=== PATIENT | male | born 1980 | race Caucasian/White ===

== ENCOUNTER 2018-10-07 11:38 | Emergency (ER) | payer BC ==
[2018-10-07] MEDS ORDERED: NORMAL SALINE 1000 ML 1,000 ML IV ONE (11:47)
[2018-10-07] MEDS ORDERED: OCTREOTIDE ACETATE INJ/PF 100 MCG/1 ML SDV IV ONE ×2 (11:51→12:00)
[2018-10-07] MEDS ORDERED: FAMOTIDINE INJ/PF 20 MG/2 ML SDV IV ONE (11:52)
[2018-10-07] MEDS ORDERED: PANTOPRAZOLE SODIUM 40 MG VIAL IV ONE (11:54)
[2018-10-07] MEDS ORDERED: PHARMACY COMMUNICATION ORDER MC NR (12:00)
[2018-10-07 12:07] LABS: ABSOLUTE EOSINOPHILS # (AUTO) 0.1 10^3/uL (0.0-0.6); ABSOLUTE LYMPHOCYTES (AUTO) 3.5 10^3/uL (0.5-4.7); ABSOLUTE NEUT (AUTO) 10.5 10^3/uL (1.7-8.2); BASOPHILS % (AUTO) 0.3 % (0-2); EOSINOPHILS % (AUTO) 0.8 % (0-6); HEMATOCRIT 37.2 % (37.9-51.0); HEMOGLOBIN 12.4 g/dL (13.5-17.0); LYMPHOCYTES % (AUTO) 23.2 % (13-45); MEAN CORPUSCULAR HEMOGLOBIN 29.4 pg (27.0-33.4); MEAN CORPUSCULAR HGB CONC 33.5 g/dL (32.0-36.0); MEAN CORPUSCULAR VOLUME 88 fl (80-97); MONOCYTES % (AUTO) 6.4 % (3-13); PLATELET COUNT 330 10^3/uL (150-450); RED BLOOD COUNT 4.23 10^6/uL (4.35-5.55); RED CELL DISTRIBUTION WIDTH 13.4 % (11.5-14.0); SEGMENTED NEUTROPHILS % (AUTO) 69.3 % (42-78); TOTAL CELLS COUNTED % (AUTO) 100 %; WHITE BLOOD COUNT 15.2 10^3/uL (4.0-10.5)
[2018-10-07 12:14] LABS: PROTHROMBIN TIME 14.8 SEC (11.4-15.4)
[2018-10-07 12:15] LABS: PARTIAL THROMBOPLASTIN TIME 24.2 SEC (23.5-35.8)
--- NOTE | 2018-10-07 12:17 | ER Document Report ---
ED General - General Stated Complaint: POSSIBLE GI BLEED Time Seen by Provider: 10/07/18 11:45 - HPI Notes: Patient is a 38-year-old male that presents to the emergency department for chief complaint of black stools. Patient reports onset of black tarry stools 1 hour prior to arrival in the emergency room. He states he has a history of gastric ulcers and has had 4 episodes of bleeding in the past. Patient has required blood transfusions previously. He reported feeling nauseated upon arrival to the emergency room which is when he also began vomiting. He denies history of esophageal varices or alcohol consumption. He states all of his family members also have peptic ulcers. He denies ever having hematemesis previously. Patient also feels hot and lightheaded. He denies syncope. Past Medical History: duadenal ulcers Past Surgical History: Negative Social History: Denies alcohol and drug use Family History: Reviewed and noncontributory for presenting illness Allergies: Reviewed, see documented allergy list. REVIEW OF SYSTEMS: CONSTITUTIONAL : No fever No chills diaphoresis No recent illness EENT: No vision changes No congestion No sore throat CARDIOVASCULAR: No chest pain No palpitations RESPIRATORY: No shortness of breath No cough No difficulty breathing GASTROINTESTINAL: abdominal pain nausea vomiting Black stools No diarrhea GENITOURINARY: No dysuria No hematuria No difficulty urinating MUSCULOSKELETAL: No back pain No leg pain No arm pain SKIN: No rashes No lesions LYMPHATIC: No swollen, enlarged glands. NEUROLOGICAL: No lightheadedness No headache No weakness No paresthesias PSYCHIATRIC: No anxiety No depression PHYSICAL EXAMINATION: Vital signs reviewed, nursing noted reviewed. GENERAL: Pale, diaphoretic, moderate distress HEAD: Atraumatic, normocephalic. EYES: Eyes appear normal, extraocular movements intact, sclera anicteric, conjunctiva are normal. ENT: nares patent, oropharynx clear without exudates. Moist mucous membranes. NECK: Normal range of motion, supple without lymphadenopathy LUNGS: Breath sounds clear to auscultation bilaterally and equal. No wheezes rales or rhonchi. HEART: Tachycardic rate and regular rhythm without murmurs ABDOMEN: Soft, epigastric tenderness, normoactive bowel sounds. No rebound, guarding, or rigidity. No masses appreciated. EXTREMITIES: Nontender, good range of motion, no pitting or edema. NEUROLOGICAL: No focal neurological deficits. Moves all extremities spontaneously Motor and sensory grossly intact on exam. PSYCH: Normal mood, normal affect. SKIN: Warm, diaphoretic, normal turgor, pale Past Medical History - Social History Smoking Status: Never Smoker Family History: Other - Mother and sibling with ulcers Physical Exam - Vital signs Vitals: Pulse Resp Pulse Ox 60 13 100 10/07/18 11:58 10/07/18 11:58 10/07/18 11:58 Course - Re-evaluation Re-evalutation: 10/07/18 12:05 Vitals reviewed. Nursing notes reviewed. Patient's heart rate was 122 and he was clammy, diaphoretic and lightheaded at presentation. Patient had multiple episodes of black stools and emesis while in the emergency room. Patient was started on IV fluids as well as blood transfusion, Protonix and octreotide. Patient's care was discussed with Dr. Dudley who evaluated the patient at bedside in the emergency room. Plan to do upper endoscopy after initial stabilization. If there is an area of bleeding that he can visualize and stop plan to admit to this facility. If patient is requiring further intervention he will need transfer to a facility with GI. 10/07/18 14:27 Patient's vital signs have improved after 2 units of packed red blood cells and 1 L of IV fluids. His tachycardia resolved and his systolic blood pressure is now 110, clinically patient appears better. He did receive upper endoscopy by Dr. Dudley at bedside in the emergency room which showed a brisk duodenal hemorrhage from ulcer. Epinephrine was injected which slowed the bleeding. Dr. Dudley still requests transfer to outside facility for further GI evaluation and possible IR intervention if bleeding recurs or worsens. Patient is in agreement with this plan of care. Patient's care was discussed with Dr. Orellana, ICU at [facility] who requested discuss her care with the hospitalist since patient's vital signs had stabilized. I discussed patient's care with Dr. Rubio, hospitalist, and Dr. Yoder, gastroenterology, who both recommend ICU admission. Patient's care was then discussed with Dr. Leon who does accept to the ICU. Laboratory 10/07/18 10/07/18 10/07/18 11:55 11:55 11:55 WBC 15.2 H RBC 4.23 L Hgb 12.4 L Hct 37.2 L MCV 88 MCH 29.4 MCHC 33.5 RDW 13.4 Plt Count 330 Seg Neutrophils % 69.3 Lymphocytes % 23.2 Monocytes % 6.4 Eosinophils % 0.8 Basophils % 0.3 Absolute Neutrophils 10.5 H Absolute Lymphocytes 3.5 Absolute Monocytes 1.0 Absolute Eosinophils 0.1 Absolute Basophils 0.0 PT 14.8 INR 1.10 APTT 24.2 Sodium 140.7 Potassium 4.4 Chloride 106 Carbon Dioxide 24 Anion Gap 11 BUN 33 H Creatinine 0.95 Est GFR ( Amer) > 60 Est GFR (Non-Af Amer) > 60 Glucose 194 H Calcium 8.9 Total Bilirubin 0.6 Direct Bilirubin 0.2 Neonat Total Bilirubin Not Reportable Neonat Direct Bilirubin Not Reportable Neonat Indirect Bili Not Reportable AST 15 L ALT 25 Alkaline Phosphatase 72 Total Protein 5.9 L Albumin 3.4 L Blood Type Antibody Screen Crossmatch 10/07/18 11:55 WBC RBC Hgb Hct MCV MCH MCHC RDW Plt Count Seg Neutrophils % Lymphocytes % Monocytes % Eosinophils % Basophils % Absolute Neutrophils Absolute Lymphocytes Absolute Monocytes Absolute Eosinophils Absolute Basophils PT INR APTT Sodium Potassium Chloride Carbon Dioxide Anion Gap BUN Creatinine Est GFR ( Amer) Est GFR (Non-Af Amer) Glucose Calcium Total Bilirubin Direct Bilirubin Neonat Total Bilirubin Neonat Direct Bilirubin Neonat Indirect Bili AST ALT Alkaline Phosphatase Total Protein Albumin Blood Type O POSITIVE Antibody Screen NEGATIVE Crossmatch See Detail KUB X-Ray 10/07/18 11:51 IMPRESSION: The tip of the NG tube is at the GE junction. 10/07/18 14:34 - Vital Signs Vital signs: Temp Pulse Resp BP Pulse Ox 98.3 F 96 17 132/90 H 100 10/07/18 12:46 10/07/18 13:31 10/07/18 13:31 10/07/18 13:31 10/07/18 13:31 - Laboratory Result Diagrams: 10/07/18 11:55 10/07/18 11:55 Laboratory results interpreted by me: 10/07/18 10/07/18 10/07/18 11:55 11:55 11:55 WBC 15.2 H RBC 4.23 L Hgb 12.4 L Hct 37.2 L Absolute Neutrophils 10.5 H BUN 33 H Glucose 194 H AST 15 L Total Protein 5.9 L Albumin 3.4 L Crossmatch See Detail Critical Care Note - Critical Care Note Total time excluding time spent on procedures (mins): 90 Comments: Critical care time 90 exclusive from separate billable procedures for a patient requiring complex medical decision making, and high potential for clinical deterioration. Time spent obtaining history from patient or surrogate, discussions with consultants, development of treatment plan with patient or surrogate, evaluation of patient's response to treatment, examination of patient, ordering and performing treatments and interventions, ordering and review of laboratory studies, re-evaluation of patient's condition, ordering and review of radiographic studies and review of old charts Discharge - Discharge Clinical Impression: Duodenal ulcer with hemorrhage Condition: Stable Disposition: Critical [facility]
[2018-10-07 12:31] LABS: ALANINE AMINOTRANSFERASE 25 U/L (21-72); ALBUMIN 3.4 g/dL (3.5-5.0); ALKALINE PHOSPHATASE 72 U/L (38-126); ANION GAP 11 (5-19); ASPARTATE AMINO TRANSFERASE 15 U/L (17-59); BILIRUBIN,DIRECT 0.2 mg/dL (0.0-0.4); BILIRUBIN,TOTAL 0.6 mg/dL (0.2-1.3); BLOOD UREA NITROGEN 33 mg/dL (7-20); CALCIUM 8.9 mg/dL (8.4-10.2); CARBON DIOXIDE 24 mmol/L (22-30); CHLORIDE 106 mmol/L (98-107); GLUCOSE 194 mg/dL (75-110); POTASSIUM 4.4 mmol/L (3.6-5.0); SODIUM 140.7 mmol/L (137-145); TOTAL PROTEIN 5.9 g/dL (6.3-8.2)
[2018-10-07] MEDS ORDERED: LIDOCAINE 2% URO-JET 5 ML KIT MM ONE (12:43)
--- NOTE | 2018-10-07 12:45 | PDOC CONSULTATION ---
Consultation Consult Date: 10/07/18 Attending physician:: Belén Le reason:: GI bleed History of Present Illness History of Present Illness: STACY MCGHEE is a 38-year-old male that presents to the emergency department for chief complaint of black stools. Patient reports onset of black tarry stools 1 hour prior to arrival in the emergency room. He states he has a history of gastric ulcers and has had 4 episodes of bleeding in the past. Patient has required blood transfusions previously. He reported feeling nauseated upon arrival to the emergency room which is when he also began vomiting. He denies history of esophageal varices or alcohol consumption. He states all of his family members also have peptic ulcers. He denies ever having hematemesis previously. Patient also feels hot and lightheaded. He denies syncop has had [place] for gi bleeding was told it was because of an ulcer between his stomach and small intestine Past Medical History Cardiac Medical History: Reports: Other - none Pulmonary Medical History: Reports: Other - no hx pneumonia, no hx of pe EENT Medical History: Reports: Other - no hx of epistaxis Neurological Medical History: Reports: Other - no seizures Endocrine Medical History: Reports: Other - no cold or heat intolerance no hx of pancreatic endocrine tumors Renal/ Medical History: Reports: Other - no kindney problems Malignancy Medical History: Reports: None GI Medical History: Reports: Other - previous hx of gi bleeding. was scoped before and controlled with endoscopy Musculoskeltal Medical History: Reports: None Psychiatric Medical History: Reports: None Traumatic Medical History: Reports: Other - no hx of significnat trauma Hematology: Reports: Other - no hx of chronic anemia or bleeding diasthesis Infectious Medical History: Reports: None, Other Infectious History Note: no hx of infectious disease no hepatitis or cirhosis Past Surgical History Past Surgical History: Reports: None Social History Smoking Status: Never Smoker Family History Family History: hx of ulcers in brother and mother Parental Family History Reviewed: Yes Children Family History Reviewed: NA Sibling(s) Family History Reviewed.: Yes Physical Exam Vital Signs: Temp Pulse Resp BP Pulse Ox 98.3 F 110 H 18 111/70 96 10/07/18 12:12 10/07/18 12:12 10/07/18 12:12 10/07/18 12:12 10/07/18 12:12 Intake & Output 0410/07/18 10/08/18 06:59 06:59 06:59 Intake Total 0 Balance 0 Weight 108.3 kg General appearance: PRESENT: other - currently vomiting blood, in er passing blood per rectum vss recieving blood txn Head exam: PRESENT: atraumatic Eye exam: PRESENT: conjunctiva pale, PERRLA Mouth exam: PRESENT: moist Neck exam: PRESENT: full ROM Respiratory exam: PRESENT: clear to auscultation thiago Cardiovascular exam: PRESENT: tachycardia Pulses: PRESENT: +2 pedal pulses bilateral Vascular exam: PRESENT: normal capillary refill GI/Abdominal exam: PRESENT: soft Rectal exam: PRESENT: black stool, bloody stool Extremities exam: PRESENT: full ROM Musculoskeletal exam: PRESENT: full ROM Neurological exam: PRESENT: alert, awake, oriented to person, oriented to place Psychiatric exam: PRESENT: anxious Skin exam: PRESENT: dry Results Laboratory Results: 10/07/18 11:55 10/07/18 11:55 WBC 15.2 H RBC 4.23 L Hgb 12.4 L Hct 37.2 L MCV 88 MCH 29.4 MCHC 33.5 RDW 13.4 Plt Count 330 Seg Neutrophils % 69.3 Lymphocytes % 23.2 Monocytes % 6.4 Eosinophils % 0.8 Basophils % 0.3 Absolute Neutrophils 10.5 H Absolute Lymphocytes 3.5 Absolute Monocytes 1.0 Absolute Eosinophils 0.1 Absolute Basophils 0.0 Assessment & Plan - Diagnosis (2) GI bleeding Qualifiers: GI bleed type/associated pathology: duodenal ulcer Qualified Code(s): K26.4 - Chronic or unspecified duodenal ulcer with hemorrhage Is this a current diagnosis for this admission?: Yes - Plan Summary Plan Summary: acute upper gi bleed prob duodenal ulcer \plan upper esophagogastroduodenoscopy risks benifits discussed, including perforation, ongoing bleeding, inability to control bleeding pt understands and agrees to proceed.
[2018-10-07] MEDS ORDERED: ONDANSETRON HCL INJ/PF 4 MG/2 ML SDV IV ONE (13:21)
--- NOTE | 2018-10-07 13:25 | RADIOLOGY REPORT (SQ) ---
EXAM DESCRIPTION: KUB/ABDOMEN (SINGLE VIEW) COMPLETED DATE/TIME: 10/07/2018 1:13 pm REASON FOR STUDY: Check Placement of NG Tube COMPARISON: None. NUMBER OF VIEWS: One view. TECHNIQUE: Supine radiographic image of the abdomen acquired. LIMITATIONS: None. FINDINGS: BOWEL GAS PATTERN: Normal bowel gas pattern. No dilated loops. CALCIFICATIONS: No suspicious calcifications. SOFT TISSUES: No gross mass or suggestion of organomegaly. HARDWARE: NG tube extends to the gastroesophageal junction. BONES: No acute fracture. No worrisome bone lesions. OTHER: No other significant finding. IMPRESSION: The tip of the NG tube is at the GE junction. TECHNICAL DOCUMENTATION: JOB ID: [id number] [employer] [place]- All Rights Reserved Reading location - IP/workstation name: [email or web address]
[2018-10-07] MEDS ORDERED: DIPHENHYDRAMINE HCL 50 MG/ML VIAL ONE (13:27)
[2018-10-07] MEDS ORDERED: NALOXONE HCL INJ/PF 0.4 MG/1 ML SDV ONE (13:28)
[2018-10-07] MEDS ORDERED: ONDANSETRON HCL INJ/PF 4 MG/2 ML SDV ONE (13:28)
[2018-10-07] MEDS ORDERED: GLUCAGON,HUMAN RECOMB 1 MG INJ ONE (13:28)
[2018-10-07] MEDS ORDERED: EPINEPHRINE INJ 1 MG/10 ML DISP.SYRIN ONE (13:28)
[2018-10-07] MEDS ORDERED: FLUMAZENIL INJ 0.5 MG/5 ML VIAL ONE (13:28)
[2018-10-07] MEDS: MIDAZOLAM 2 MG/2 ML INJ ONE ×5 (14:03→14:25)
[2018-10-07] MEDS: FENTANYL CITRATE INJ/PF 100 MCG/2 ML AMPUL ONE ×3 (14:05→14:15)
[2018-10-07] MEDS ORDERED: NORMAL SALINE 250 ML IV PRN ×2 (14:19)
--- NOTE | 2018-10-07 14:51 | Operative Report ---
Nonrecallable Operative Report DATE OF SURGERY: 10/07/18 PREOPERATIVE DIAGNOSIS: ugi bleeding POSTOPERATIVE DIAGNOSIS: posterior duodenal ulcer bleeding OPERATION: esophagogastroduodenoscopy SURGEON: KATE RUFFIN ANESTHESIA: Moderate Sedation TISSUE REMOVED OR ALTERED: none COMPLICATIONS: none ESTIMATED BLOOD LOSS: 50cc INTRAOPERATIVE FINDINGS: posterior duodenal ulcer with central arterial bleed PROCEDURE: see dictation
[2018-10-07] MEDS ORDERED: PANTOPRAZOLE SODIUM 40 MG VIAL IV PRN (14:57)
[2018-10-07 15:11] VITALS: BP 131/77
--- NOTE | 2018-10-08 08:24 | OPERATIVE REPORT E ---
Operative Report NAME: STACY MCGHEE : 1980 AGE: 38Y DATE OF SURGERY: 10/07/2018 ROOM: PREOPERATIVE DIAGNOSIS: UPPER GASTROINTESTINAL BLEED. POSTOPERATIVE DIAGNOSIS: POSTERIOR DUODENAL ULCER. OPERATION: Esophagogastroduodenoscopy with control of bleeding ulcer. SURGEON: KATE RUFFIN M.D. INDICATION FOR OPERATION: This is a 38-year-old male who presented to the emergency room this morning vomiting blood. He had a significant amount of hematemesis and was hypotensive upon arrival. He received 2 units of packed red blood cells, IV fluids, and IV Protonix. After his vital signs stabilized he was scheduled for this procedure. DETAILS OF PROCEDURE: The patient was in the trauma bay 2 in the emergency room. After appropriate consent, timeout, and site verification the Olympus gastroscope was placed into the posterior pharynx. It was passed down the esophagus into the proximal stomach where we noted some old dark blood. The pylorus was easily visualized and easily intubated. Upon entering the pylorus there was a large amount of blood from the post pyloric duodenal bulb. I passed the scope distal to that and noted the distal duodenum with bile in it. As I brought the scope back I noted an ulcer with a central artery that was oozing. It appeared that was where the bleeding was emanating from. Using 50% epinephrine solution we injected the area of the ulcer at its base with approximately 3 mL of 50% epinephrine solution. The bleeding slowed significantly after this. We then irrigated again and noted no further evidence of large amounts of clot or blood. I pulled the scope back, examined the fundus in a retroflexed fashion and there was no evidence of any ulcers or pathology in the gastric fundus nor body of the stomach, only fluid scope, which completed the procedure. FINDINGS: Posterior duodenal ulcer, bleeding. Controlled with epinephrine. PLAN: The patient will be transferred to a tertiary care facility for monitoring and if necessary interventional radiology for embolization versus surgery if he re-bleeds. DICTATING PHYSICIAN: KATE RUFFIN M.D. [id number] PHY#: [id number] ID: [id number] JOB#: [id number] ACCT: [id number] cc:KATE RUFFIN M.D. >
== END 2018-10-07 15:30 | disposition short-term general hospital (02) ==
LOC: ER 11:38
DX: K26.4 Chronic or unspecified duodenal ulcer with hemorrhage (principal); R19.5 Other fecal abnormalities; R11.2 Nausea with vomiting, unspecified
CPT/HCPCS: 99291; 99292; 96361; 96374; 96375; 43236; 86900; 86901; 36415; 36430; 86850; 85025; 85610; 85730; 80053; 86920; 74018; P9016; J2250; J3010; J2354; S0164; J2405; J7030; J3490; J0171; J1200; J1610; J2310